=== PATIENT | female | born 1980 | race Caucasian/White ===

== ENCOUNTER 2019-09-02 17:52 | Emergency (ER) | payer OTHER, SELFPAY ==
[~2019-09-02] VITALS: Ht 177.8 cm; Wt 83.9 kg
[2019-09-02 18:02] VITALS: Ht 177.8 cm; Wt 83.9 kg
--- NOTE | 2019-09-02 18:47 | NUR ---
PT REFUSED ABG IN ER AT 18:30. DR. TORRES MADE AWARE.
[2019-09-02 18:57] LABS: BASOPHIL % 0.4 % (0-2); PLATELET COUNT 361 x10^3mcL (130-400); RED CELL DISTRIBUTION WIDTH 12.5 % (11.5-14.5)
[2019-09-02 19:04] VITALS: BP 108/72
[2019-09-02 19:05] LABS: CALCIUM 8.3 mg/dL (8.5-10.1); CARBON DIOXIDE 26.7 mmol/L (21-32); CHLORIDE SERUM 101 mmol/L (98-107); CREATININE SERUM 0.9 mg/dL (0.6-1.0); GFR1 > 60 mL/min; GLUCOSE SERUM 90 mg/dL (74-106); POTASSIUM SERUM 3.9 mmol/L (3.5-5.1); SODIUM SERUM 136 mmol/L (136-145)
[2019-09-02 19:09] LABS: ALKALINE PHOSPHATASE 100 U/L (46-116); ALT/SGPT 50 U/L (14-59); AST/SGOT 28 U/L (15-37); BILIRUBIN TOTAL 0.3 mg/dL (0.20-1.00); C REACTIVE PROTEIN 1.5 mg/dL (<=0.9); LACTIC DEHYDROGENASE (LDH) 241 U/L (100-190); TOTAL PROTEIN, SERUM 7.1 g/dL (6.4-8.2)
[2019-09-02 19:10] LABS: ALBUMIN 3.3 g/dL (3.4-5.0)
== END 2019-09-02 21:28 ==
LOC: ED 17:52
PROVIDERS: Emergency Medicine
DX: J40 Bronchitis, not specified as acute or chronic (principal); Z20.828 Contact with and (suspected) exposure to other viral communicable diseases
CPT/HCPCS: 36415; 83880; 85378; 87804; Q0092; U0003-CS